=== PATIENT | male | born 1995 | race Caucasian/White ===

== ENCOUNTER 2018-01-07 05:59 | Day surgery (SDC) | payer MEDICAID, BC ==
[2018-01-07] MEDS ORDERED: MIDAZOLAM 1 MG/ML 2 ML INJ ×3 (08:32)
[2018-01-07] MEDS ORDERED: FENTAnyl 50 MCG/ML VIAL (08:32)
== END 2018-01-07 11:08 | disposition home or self-care (01) ==
LOC: GIL 05:59
DX: R19.4 Change in bowel habit (principal); K64.8 Other hemorrhoids
CPT/HCPCS: 45378